=== PATIENT | female | born 1975 | race Hispanic/Latino ===

== ENCOUNTER 2022-03-08 16:31 | Emergency (ER) | payer BC ==
[~2022-03-08] VITALS: Ht 170.2 cm; Wt 100.5 kg
[2022-03-08] MEDS ORDERED: SODIUM CHLORIDE 0.9% 1000ML 1,000 ML IV STA (17:10)
[2022-03-08] MEDS ORDERED: AMLODIPINE BESYL5 MG PO (17:15)
[2022-03-08] MEDS ORDERED: ATENOLOL50 MG PO (17:15)
[2022-03-08] MEDS ORDERED: ASPIRIN EC81 MG PO (17:15)
[2022-03-08] MEDS ORDERED: ONDANSETRON HCL INJ 2MG/ML 2ML 2 MG/ML VIAL IV STA (17:55)
[2022-03-08] MEDS ORDERED: ONDANSETRON ODT4 MG PO (18:18)
== END 2022-03-08 18:31 | disposition home or self-care (01) ==
LOC: FSED 17:11
DX: R11.2 Nausea with vomiting, unspecified (principal); B34.9 Viral infection, unspecified; R51.9 Headache, unspecified; I10 Essential (primary) hypertension; E11.9 Type 2 diabetes mellitus without complications; Z86.73 Personal history of transient ischemic attack (TIA), and cerebral infarction without residual deficits
CPT/HCPCS: 71046; 80048; 80076; 81003; 81025; 83518; 83880; 85025; 87400; 96374; 99284; J2405

== ENCOUNTER 2022-03-19 10:32 | Observation (INO) | payer BC ==
[~2022-03-19] VITALS: Ht 170.2 cm; Wt 98.9 kg
[~2022-03-19 10:32] MED LIST: AMLODIPINE BESYL5 MG PO; ASPIRIN EC81 MG PO; ATENOLOL50 MG PO; ONDANSETRON ODT4 MG PO
[2022-03-19] MEDS ORDERED: ONDANSETRON HCL INJ 2MG/ML 2ML 2 MG/ML VIAL IV PRN (12:30)
[2022-03-19] MEDS ORDERED: ASPIRIN 81 MG CHEW TAB PO ONE (12:30)
[2022-03-19] MEDS ORDERED: ASPIRIN 81 MG CHEW TAB ONE (14:32)
[2022-03-19] MEDS ORDERED: RIZATRIPTAN5 M1 (15:19)
[2022-03-19] MEDS ORDERED: TOPIRAMATE25 MG PO (15:19)
[2022-03-19] MEDS ORDERED: CATAPRES-TTS 11 EACH TD (15:19)
[2022-03-19 20:00] VITALS: BP 122/88
[2022-03-19 20:11] LABS: CREATINE KINASE MB 0.7 ng/mL (0-5.0)
[2022-03-19] MEDS ORDERED: ACETAMINOPHEN 325 MG TAB PO PRN (23:45)
[2022-03-19] MEDS ORDERED: Morphine 2mg Syringe 2 MG/ML SYR IV PRN (23:45)
[2022-03-20] VITALS (7 sets, daily range): BP systolic 119–130; BP diastolic 69–88
[2022-03-20 06:47] LABS: BASOPHILS % 0.2 % (0.0-1.0); EOSINOPHILS # (AUTO) 0.2 (0.0-0.4); HEMOGLOBIN 14.2 g/dL (12.0-16.0); LYMPHOCYTES # (AUTO) 3.9 (1.0-3.2); LYMPHOCYTES % 39.8 % (18.0-39.1); MEAN CORPUSCULAR HEMOGLOBIN 28.8 pg (28-32); MEAN CORPUSCULAR HGB CONC 30.9 g/dL (31-35); MEAN CORPUSCULAR VOLUME 93.3 fL (81-99); MONOCYTES # (AUTO) 0.9 (0.2-0.8); MONOCYTES % 9.1 % (4.4-11.3); NEUTROPHILS # (AUTO) 4.8 (2.1-6.9); NEUTROPHILS % 48.5 % (38.7-80.0); PLATELET COUNT 224 x10e3/uL (140-360); RED BLOOD COUNT 4.93 x10e6/uL (3.6-5.1); RED CELL DISTRIBUTION WIDTH 12.5 % (11.7-14.4)
[2022-03-20 07:20] LABS: ALBUMIN 3.5 g/dL (3.5-5.0); ALBUMIN/GLOBULIN RATIO 0.9 (0.8-2.0); ANION GAP 13.9 mmol/L (8-16); CALCIUM 9.1 mg/dL (8.4-10.2); CREATININE, SERUM 0.84 mg/dL (0.57-1.11); POTASSIUM 3.9 mmol/L (3.5-5.1)
[2022-03-20 07:21] LABS: ALBUMIN 3.4 g/dL (3.5-5.0); BILIRUBIN,DIRECT 0.3 mg/dL (0.0-0.5); CHOL/HDL RATIO 5.3 (3.0-3.6)
[2022-03-20 07:31] LABS: THYROID STIMULATING HORMONE 1.056 uIU/mL (0.350-4.940)
[2022-03-20 07:36] LABS: CREATINE KINASE MB 11.6 ng/mL (0-5.0)
[2022-03-20] MEDS ORDERED: ASPIRIN 325 MG TAB EC PO SCH (09:00)
[2022-03-20] MEDS ORDERED: AMLODIPINE BESYLATE 5 MG TAB PO SCH (09:00)
[2022-03-20] MEDS ORDERED: REGADENOSON 0.4 MG/5 ML SYR IV ONE (10:32)
[2022-03-20] MEDS ORDERED: AZITHROMYCIN250 MG PO (14:11)
[2022-03-20] MEDS ORDERED: ONDANSETRON HCL 4 MG ORAL DISINTEGRATING TAB PO PRN (14:30)
[2022-03-20 16:37] LABS: CREATINE KINASE 49 IU/L (29-168)
== END 2022-03-20 16:30 | disposition home or self-care (01) ==
LOC: FSED 10:33 → ERHOLD 12:17 → MED/SURG3 19:45
PROVIDERS: ADMIT Internal Medicine; ATTEND Internal Medicine
DX: R07.89 Other chest pain (principal); I10 Essential (primary) hypertension; E11.9 Type 2 diabetes mellitus without complications; E78.00 Pure hypercholesterolemia, unspecified; M19.071 Primary osteoarthritis, right ankle and foot; E66.9 Obesity, unspecified; I69.351 Hemiplegia and hemiparesis following cerebral infarction affecting right dominant side; Z91.014 Allergy to mammalian meats; Z88.8 Allergy status to other drugs, medicaments and biological substances; Z91.018 Allergy to other foods; Z82.49 Family history of ischemic heart disease and other diseases of the circulatory system; Z68.34 Body mass index [BMI] 34.0-34.9, adult; Z79.82 Long term (current) use of aspirin
CPT/HCPCS: 36415 ×2; 71045; 78452; 80053 ×2; 80061; 80076; 81003; 82550 ×2; 82553 ×2; 82948 ×2; 84443; 84484 ×2; 85025 ×2; 93005; 93017; 93306; 99284; A9502; G0378 ×2; J2270; J2785; U0002

== ENCOUNTER 2022-05-12 21:52 | Emergency (ER) | payer BC ==
[~2022-05-12] VITALS: Ht 170.2 cm; Wt 101.6 kg
[~2022-05-12 21:52] MED LIST changes: +AZITHROMYCIN250 MG PO; +CATAPRES-TTS 11 EACH TD; +RIZATRIPTAN5 M1; +TOPIRAMATE25 MG PO
[2022-05-12] MEDS ORDERED: CYCLOBENZAPRINE HCL 10 MG TAB PO ONE (22:30)
[2022-05-12] MEDS ORDERED: KETOROLAC TROMETHAMINE 60 MG/2 ML VIAL IM ONE (22:30)
[2022-05-12] MEDS ORDERED: KETOROLAC TROMETHAMINE 30 MG/ML VIAL ONE (22:56)
[2022-05-12] MEDS ORDERED: CYCLOBENZAPRINE10 MG PO (23:28)
[2022-05-12 23:40] VITALS: BP 151/99
== END 2022-05-12 23:40 | disposition home or self-care (01) ==
LOC: FSED 22:19
DX: R51.9 Headache, unspecified (principal); M62.838 Other muscle spasm; I10 Essential (primary) hypertension; E11.9 Type 2 diabetes mellitus without complications; Z86.73 Personal history of transient ischemic attack (TIA), and cerebral infarction without residual deficits
CPT/HCPCS: 70450; 72125; 83518; 99283; J1885

== ENCOUNTER 2022-08-09 04:11 | Emergency (ER) | payer BC ==
[~2022-08-09] VITALS: Ht 170.2 cm; Wt 99.8 kg
[~2022-08-09 04:11] MED LIST changes: +CYCLOBENZAPRINE10 MG PO
[2022-08-09] MEDS ORDERED: ONDANSETRON HCL INJ 2MG/ML 2ML 2 MG/ML VIAL ONE (05:18)
[2022-08-09] MEDS ORDERED: PROMETHAZINE HCL (IM) 25 MG/ML VIAL IM ONE (05:18)
[2022-08-09] MEDS ORDERED: ONDANSETRON HCL INJ 2MG/ML 2ML 2 MG/ML VIAL IV STA (05:33)
[2022-08-09] MEDS ORDERED: PROMETHAZINE 12.5MG/ NACL 0.9% 12.5 MG/50 ML BAG IV ONE ×2 (05:45→06:00)
[2022-08-09] MEDS ORDERED: SODIUM CHLORIDE 0.9% 1000ML 1,000 ML IV ONE (05:45)
[2022-08-09] MEDS ORDERED: Morphine 4mg INJECTION 4 MG/ML INJ IV ONE (06:00)
[2022-08-09] MEDS ORDERED: SODIUM CHLORIDE 0.9% 1000ML 1,000 ML IV SCH (06:00)
[2022-08-09] MEDS ORDERED: Morphine 4mg INJECTION 4 MG/ML INJ ONE (06:00)
[2022-08-09] MEDS ORDERED: FAMOTIDINE 20 MG/2 ML VIAL IV STA (06:38)
[2022-08-09] MEDS ORDERED: PROMETHAZINE HC25 M1 PO (06:45)
[2022-08-09] MEDS ORDERED: FAMOTIDINE 20 MG/2 ML VIAL IV ONE (06:54)
== END 2022-08-09 07:35 | disposition home or self-care (01) ==
LOC: FSED 04:25
DX: R11.2 Nausea with vomiting, unspecified (principal); R51.9 Headache, unspecified; T38.0X5A Adverse effect of glucocorticoids and synthetic analogues, initial encounter; I10 Essential (primary) hypertension; E11.9 Type 2 diabetes mellitus without complications; M54.9 Dorsalgia, unspecified; G89.29 Other chronic pain; I69.351 Hemiplegia and hemiparesis following cerebral infarction affecting right dominant side
CPT/HCPCS: 70450; 80053; 85025; 87400; 99284; J2270; J2405; J2550

== ENCOUNTER 2023-01-13 20:24 | Emergency (ER) | payer BC ==
[~2023-01-13] VITALS: Ht 170.2 cm; Wt 99.8 kg
[~2023-01-13 20:24] MED LIST changes: +PROMETHAZINE HC25 M1 PO
[2023-01-13] MEDS ORDERED: HYDRALAZINE HCL 20 MG/ML VIAL IV ONE (21:00)
[2023-01-13] MEDS ORDERED: HYDRALAZINE HCL 20 MG/ML VIAL ONE (21:08)
[2023-01-13] MEDS ORDERED: CLONIDINE HCL 0.1 MG TAB ONE (21:08)
[2023-01-13] MEDS ORDERED: CLONIDINE HCL 0.1 MG TAB PO ONE (21:30)
[2023-01-13] MEDS ORDERED: AMLODIPINE BESYL5 MG PO (21:57)
[2023-01-13] MEDS ORDERED: ATENOLOL50 MG PO (21:57)
[2023-01-13] MEDS ORDERED: HYDROCHLOROTHIA25 MG PO (21:57)
== END 2023-01-13 22:25 | disposition home or self-care (01) ==
LOC: FSED 20:26
DX: R07.89 Other chest pain (principal); I10 Essential (primary) hypertension; E11.9 Type 2 diabetes mellitus without complications; M54.9 Dorsalgia, unspecified; G89.29 Other chronic pain; I69.351 Hemiplegia and hemiparesis following cerebral infarction affecting right dominant side
CPT/HCPCS: 71046; 80053; 81003; 82553; 84484; 85025; 93005; 99284; J0360

== ENCOUNTER 2023-10-25 09:01 | Emergency (ER) | payer BC ==
[~2023-10-25] VITALS: Ht 170.2 cm; Wt 99.8 kg
[~2023-10-25 09:01] MED LIST changes: +HYDROCHLOROTHIA25 MG PO; +SALONPAS1 EACH EXT
[2023-10-25 09:37] VITALS: O2SAT 97
[2023-10-25] MEDS ORDERED: CIPROFLOX-DEXA7.5 ML LEFT EAR (09:39)
[2023-10-25] MEDS ORDERED: AMOX TR-K CLV1 EAC1 PO (09:41)
== END 2023-10-25 09:35 | disposition home or self-care (01) ==
LOC: FSED 09:06
DX: H60.92 Unspecified otitis externa, left ear (principal); I10 Essential (primary) hypertension; E11.9 Type 2 diabetes mellitus without complications; M54.9 Dorsalgia, unspecified; G89.29 Other chronic pain; I69.351 Hemiplegia and hemiparesis following cerebral infarction affecting right dominant side; Z86.79 Personal history of other diseases of the circulatory system
CPT/HCPCS: 99282

== ENCOUNTER 2024-04-03 11:04 | Emergency (ER) | payer BC ==
[~2024-04-03] VITALS: Ht 170.2 cm; Wt 107.2 kg
[~2024-04-03 11:04] MED LIST changes: +AMOX TR-K CLV1 EAC1 PO; +CIPROFLOX-DEXA7.5 ML LEFT EAR
[2024-04-03] MEDS ORDERED: LEVOFLOXACIN250 MG PO (11:32)
[2024-04-03] MEDS ORDERED: MELOXICAM7.5 MG PO (11:32)
[2024-04-03] MEDS: SODIUM CHLORIDE 0.9% 1000ML 1,000 ML IV ONE (11:50)
[2024-04-03] MEDS: KETOROLAC TROMETHAMINE 30 MG/ML VIAL IV STA (11:51)
[2024-04-03 13:07] VITALS: PULSE 60; RESP 16; TEMP 98.1; O2SAT 97
== END 2024-04-03 13:07 | disposition home or self-care (01) ==
LOC: FSED 11:08
DX: R10.9 Unspecified abdominal pain (principal); I10 Essential (primary) hypertension; E11.9 Type 2 diabetes mellitus without complications; Z88.8 Allergy status to other drugs, medicaments and biological substances; Z79.82 Long term (current) use of aspirin
CPT/HCPCS: 74176; 80053; 81003; 81025; 85025; 96374; 96375; 99284; J1885; J7030

== ENCOUNTER 2024-12-27 11:35 | Emergency (ER) | payer BC ==
[~2024-12-27] VITALS: Ht 170.2 cm; Wt 109.1 kg
[~2024-12-27 11:35] MED LIST changes: +CLONIDINE HCL0.1 MG PO; +FAMOTIDINE40 MG PO; +LEVOFLOXACIN250 MG PO; +MELOXICAM7.5 MG PO; +NAPROSYN500 MG PO; +ULTRAM 50MG50 MG PO
[2024-12-27] MEDS ORDERED: HYDROCHLOROTH12.5 MG (12:21)
[2024-12-27] MEDS: ONDANSETRON HCL 4 MG ORAL DISINTEGRATING TAB PO ONE (12:51)
[2024-12-27] MEDS ORDERED: ULTRAM 50MG50 MG PO (13:08)
[2024-12-27] MEDS ORDERED: CYCLOBENZAPRINE5 MG PO (13:37)
[2024-12-27 13:55] VITALS: PULSE 70; RESP 16; TEMP 98; O2SAT 97
== END 2024-12-27 13:55 | disposition home or self-care (01) ==
LOC: FSED 11:43
DX: M50.30 Other cervical disc degeneration, unspecified cervical region (principal); M48.02 Spinal stenosis, cervical region; M62.838 Other muscle spasm; I10 Essential (primary) hypertension; E11.9 Type 2 diabetes mellitus without complications; M54.9 Dorsalgia, unspecified; G89.29 Other chronic pain; Z87.442 Personal history of urinary calculi; Z86.73 Personal history of transient ischemic attack (TIA), and cerebral infarction without residual deficits
CPT/HCPCS: 70450; 72125; 99283; Q0162

== ENCOUNTER 2025-01-25 19:22 | Emergency (ER) | payer BC ==
[~2025-01-25] VITALS: Ht 170.2 cm; Wt 99.8 kg
[~2025-01-25 19:22] MED LIST changes: +CYCLOBENZAPRINE5 MG PO; +HYDROCHLOROTH12.5 MG
[2025-01-25 19:25] VITALS: PULSE 70; RESP 18; TEMP 97.7
[2025-01-25] MEDS ORDERED: KETOROLAC TROMETHAMINE 30 MG/ML VIAL IM STA (19:40)
[2025-01-25 19:59] VITALS: BP 142/85; RESP 18; O2SAT 98
== END 2025-01-25 20:00 | disposition home or self-care (01) ==
LOC: FSED 19:31
DX: M79.672 Pain in left foot (principal); M67.472 Ganglion, left ankle and foot; I10 Essential (primary) hypertension; E11.9 Type 2 diabetes mellitus without complications; K21.9 Gastro-esophageal reflux disease without esophagitis; M54.9 Dorsalgia, unspecified; G89.29 Other chronic pain; Z86.73 Personal history of transient ischemic attack (TIA), and cerebral infarction without residual deficits; Z87.442 Personal history of urinary calculi
CPT/HCPCS: 99282